=== PATIENT | female | born 1950 | race Caucasian/White ===

== ENCOUNTER → 2016-05-17 13:24 | Outpatient (CLI) | payer MEDICARE, BC ==
[2015-09-23 07:39] VITALS: BMI 36.1
[~2016-05-17 13:24] MED LIST: BAYER CHEWABLE81 MG PO; COMBIVENT RESPIM4 GM INH; IMDUR30 MG PO; MOBIC7.5 MG PO; NEURONTIN 300300 MG PO; NORCO 10/325 TA1 TA1 PO; PERCOCET 10/3251 TA1 PO; PERFOROMIS20 MCG/21 NEB; PLAVIX75 MG PO; PRAVACHOL40 MG PO; PRILOSEC20 MG PO; PRINIVIL10 MG PO; PROTONIX40 MG PO; SPIRIVA18 MCG INH; SYMBICORT 16010.2 GM INH; TENORMIN25 MG PO
[2016-05-23 03:08] LABS: OVA + PARASITE EXAM Final report (())
== END | disposition home or self-care (01) ==
LOC: D.LAB 11:00 → D.LABREF 13:24 → D.LAB 05-18 11:00
PROVIDERS: Internal Medicine Gastroenterology
DX: R10.9 Unspecified abdominal pain (principal)

== ENCOUNTER → 2016-05-18 09:44 | Outpatient (CLI) | payer MEDICARE, BC ==
[2015-09-23 07:39] VITALS: BMI 36.1
== END | disposition home or self-care (01) ==
LOC: D.CT 09:44
DX: R10.9 Unspecified abdominal pain (principal); R19.7 Diarrhea, unspecified; R63.4 Abnormal weight loss

== ENCOUNTER 2016-06-21 11:35 | Day surgery (SDC) | payer MEDICARE, BC ==
[~2016-06-21] VITALS: Ht 162.6 cm; Wt 94.5 kg
[~2016-06-21 11:35] MED LIST changes: -MOBIC7.5 MG PO; -PROTONIX40 MG PO; -SYMBICORT 16010.2 GM INH
[2016-06-21] MEDS ORDERED: MOBIC7.5 MG PO (13:30)
[2016-06-21 13:33] LABS: BASOPHILS 0.2 % (0.0-2.0); EOSINOPHILS 0.5 % (0-7); HEMATOCRIT 46.8 % (36.0-48.0); HEMOGLOBIN 15.9 g/dL (12-16); IMMATURE GRANULOCYTES 0.2 % (0-5); LYMPHOCYTES 24.7 % (15-50); MCH 33.3 pg (26.0-34.0); MCV 97.9 fL (80.0-100.0); MEAN PLATELET VOLUME 11.5 fL (7.4-10.4); MONOCYTES 8.1 % (2-11); NEUTROPHILS 66.3 % (40-80); PLATELET COUNT 219 10x3/uL (130-400); RBC 4.78 10x6/uL (4.00-5.40); WBC 9.3 10x3/uL (4.8-10.8)
[2016-06-21 13:35] VITALS: Ht 162.6 cm; Wt 94.5 kg
[2016-06-21 14:12] LABS: CALC OSMOLALITY 280 mosm/kg (275-300); CALCIUM 9.2 mg/dL (8.5-10.1); CHLORIDE - SERUM 104 mmol/L (98-107); CREATININE - SERUM 0.8 mg/dL (0.6-1.3); GLUCOSE 104 mg/dL (74-106); POTASSIUM - SERUM 4.9 mmol/L (3.5-5.1); SODIUM 141 mmol/L (136-145); UREA NITROGEN 13 mg/dL (7-18); eGFR NON AFRICAN AMERICAN 75 mL/min (90-120)
--- NOTE | 2016-06-21 14:40 | NUR ---
BALLOON DILATION 18 TO 20.
--- NOTE | 2016-06-21 16:25 | NUR ---
1545-IV D/C'D, PT TOLERATED. CATHETER INTACT 1605- DISCHARGE INSTRUCTIONS COMPLETED, PT VERBALIZED UNDERSTANDING. PAPERWORK SIGNED. 1610- PT DISCHARGED VIA WHEELCHAIR WITH FRIEND
--- NOTE | 2016-06-26 10:50 | OP ---
PATIENT NAME: RIZWAN DO MEDICAL RECORD: [id number] :48 LOCATION:D.OPS ADMISSION DATE: SURGEON: SRAVANI KEY DO DATE OF OPERATION: 06/21/2016 PROCEDURES: EGD with biopsies and balloon dilation. SCOPE: Olympus video gastroscope. MEDICATIONS: Propofol IV per anesthesia. INDICATIONS FOR PROCEDURE: Dysphagia, abnormal weight loss, abdominal pain. FINDINGS: Informed consent was given. The patient was made comfortable with propofol by slow IV push. Once adequate level of sedation was reached, the patient was placed on her left side. The endoscope was then advanced under direct visualization through the mouth to the second portion of the duodenum. The upper, middle and distal third of the esophagus appeared normal. 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 Just superior to this, there was a very mild Schatzki ring, which was dilated up to 20 mm in diameter successfully. The scope was advanced into the stomach and retroflexed to view the cardia where a small sliding hiatal hernia was visualized. The fundus, body of the stomach, antrum and prepyloric region appeared normal. Random biopsies were taken to rule out H. pylori and sent for histology. Scope was advanced in the small bowel where the bulb and the second portion of the duodenum appeared normal. The scope was then withdrawn from the patient. The patient tolerated the procedure well and there were no complications. ESTIMATED BLOOD LOSS: Less than 5 cc. IMPRESSION: 1. Mild Schatzki ring of the distal esophagus dilated up to 20 mm in diameter. 2. Borden esophagus, short segment, biopsied. 3. Small sliding hiatal hernia. PLAN AND RECOMMENDATIONS: 1. Discharge home when recovery parameters are met. 2. Continue gastroesophageal reflux diet and reflux precautions. 3. Change medications to Protonix 40 mg daily. 4. Proceed with colonoscopy as scheduled. 5. Follow up biopsy specimens. 6. Repeat EGD as needed for dysphagia. TRANSINT:[id number] Voice Confirmation ID: [id number] DOCUMENT ID: [id number] SRAVANI KEY DO at 1050 CC: [id number] DICTATION DATE: 06/21/16 1453 WIRELESS CONSTRUCTION MANAGER: 06/21/16 1846 [facility] 06/21/16 [facility] [address] [place] [address]
== END 2016-06-21 16:10 | disposition home or self-care (01) ==
LOC: D.OPS 11:35
PROVIDERS: Anesthesiology
DX: R10.30 Lower abdominal pain, unspecified (principal); R63.4 Abnormal weight loss; R19.7 Diarrhea, unspecified; K22.70 Barrett's esophagus without dysplasia; F17.200 Nicotine dependence, unspecified, uncomplicated; I25.10 Atherosclerotic heart disease of native coronary artery without angina pectoris; I10 Essential (primary) hypertension; J44.9 Chronic obstructive pulmonary disease, unspecified; K21.9 Gastro-esophageal reflux disease without esophagitis; Z95.5 Presence of coronary angioplasty implant and graft

== ENCOUNTER 2016-06-25 06:49 | Day surgery (SDC) | payer MEDICARE, BC ==
[~2016-06-25] VITALS: Ht 162.6 cm; Wt 94.5 kg
[~2016-06-25 06:49] MED LIST changes: +MOBIC7.5 MG PO
[2016-06-25] MEDS ORDERED: PROTONIX40 MG PO (07:29)
[2016-06-25] MEDS ORDERED: SYMBICORT 16010.2 GM INH (07:29)
[2016-06-25 07:37] VITALS: BP 144/86; Ht 162.6 cm; Wt 94.5 kg
[2016-06-25 08:22] LABS: ANION GAP 20.3 mmol/L (8-16); CALCIUM 9.1 mg/dL (8.5-10.1); POTASSIUM - SERUM 4.3 mmol/L (3.5-5.1)
[2016-06-25 08:28] LABS: BASOPHILS 0.5 % (0.0-2.0); EOSINOPHILS 1.5 % (0-7); HEMATOCRIT 47.4 % (36.0-48.0); HEMOGLOBIN 16.3 g/dL (12-16); IMMATURE GRANULOCYTES 0.2 % (0-5); MCH 33.3 pg (26.0-34.0); MCHC 34.4 g/dL (31.0-37.0); MCV 96.9 fL (80.0-100.0); MEAN PLATELET VOLUME 11.9 fL (7.4-10.4); MONOCYTES 8.6 % (2-11); NEUTROPHILS 65.2 % (40-80); PLATELET COUNT 258 10x3/uL (130-400); RBC 4.89 10x6/uL (4.00-5.40); RDW 12.7 % (11.5-14.5); WBC 8.6 10x3/uL (4.8-10.8)
--- NOTE | 2016-06-25 08:53 | NUR ---
0840-RECEIVED PT FROM GI LAB AWAKE AND ALERT. PASSING GAS. DENIES ANY N/V COLA GIVEN REQUEST. DR KEY IN ROOM SPEAKING WITH PATIENT. FULL LIQUID TRAY GIVEN. WILL CONTINUE TO MONITOR
--- NOTE | 2016-06-25 08:58 | NUR ---
0855-REPORT TO QUINN CLEARY RN
--- NOTE | 2016-06-25 09:35 | NUR ---
RX FOR BENTYL 10 MG ONE OR TWO PO BID PRN LOOSE STOOLS OR ABDOMINAL PAIN #[address] KEY CALLED TO [facility] WHICH PATIENT STATES IS PHARMACY OF CHOICE
--- NOTE | 2016-06-25 09:42 | NUR ---
DISCHARGE INSTRUCTIONS REVIEWED WITH PATIENT, DISCHARGED HOME VIA WHEELCHAIR TO PRIVATE VEHICLE
--- NOTE | 2016-06-26 10:50 | OP ---
PATIENT NAME: RIZWAN DO MEDICAL RECORD: [id number] :48 LOCATION:D.OPS ADMISSION DATE: SURGEON: SRAVANI KEY DO DATE OF OPERATION: 06/25/2016 PROCEDURE: Colonoscopy with biopsies and polypectomy. MEDICATIONS: Propofol 600 mg IV per anesthesia. SCOPE: [employer] video pediatric colonoscope. FINDINGS: Informed consent was given. The patient was made comfortable with the above medication. After reaching an adequate level of sedation by slow IV push, the patient was placed on her left side. A digital rectal examination was performed and ____ normal. The endoscope was then advanced under direct visualization through the rectum and advanced to the terminal ileum without difficulty. The scope was then slowly withdrawn and mucosa was carefully examined. In the cecum, just near the appendiceal orifice, there was a small sessile, but an appearing polyp measuring approximately 3 mm, which was removed with cold forceps. The polyp was completely removed and retrieved. Scope was withdrawn slightly to the ileocecal valve where there did appear to be lipomatous changes consistent with that valve. Multiple biopsies were taken in a tunnel fashion to confirm that this was a lipoma. Of note, this has been documented on a previous examination 3 years ago and does not appear to be changed or enlarged. Biopsies at that time showed only superficial mucosa. There was another polyp in the transverse colon, which was benign appearing and sessile. It measured approximately 6 mm in diameter. It was removed using hot forceps. It was completely removed and retrieved. There was evidence of mild diverticulosis in the transverse, descending, and sigmoid colon. The scope was further withdrawn to the rectum and retroflexed. The rectal wall appeared normal upon retroflexion. Scope was then withdrawn from the patient. Prior to withdrawal, there were random biopsies taken on the right side of the colon to rule out microscopic colitis. There was also stool collected to send for further stool studies regarding the patient's loose stools. The patient tolerated the procedure well and there were no complications. The withdrawal time was 21 minutes. IMPRESSION: 1. Two benign appearing polyps were located in the cecum and transverse colon. Both were removed with different maneuvers. 2. Left side diverticulosis of mild severity. 3. Clinical loose stools. PLAN AND RECOMMENDATIONS: 1. Discharge home when recovery parameters are met. 2. Continue current diet. 3. Continue current medications. 4. Follow up on biopsy specimens. 5. If biopsies are normal, consider dicyclomine versus another agent to either bulk stools or slow bowels down. 6. Recall recommendations will be dependent on biopsy results. TRANSINT:[id number] Voice Confirmation ID: [id number] DOCUMENT ID: [id number] OPERATIVE REPORT [id number] RIZWAN DO NATHAN A DO at 1050 CC: [id number] DICTATION DATE: 06/25/16834 QUILL WINDER: 06/25/16 1023 [facility] 06/25/16 [facility] [address] [place] [address]
[2016-06-27 03:11] LABS: OVA + PARASITE EXAM Final report (())
== END 2016-06-25 09:42 | disposition home or self-care (01) ==
LOC: D.OPS 06:49
PROVIDERS: Anesthesiology; Internal Medicine Gastroenterology
DX: D12.3 Benign neoplasm of transverse colon (principal); D12.0 Benign neoplasm of cecum; K57.90 Diverticulosis of intestine, part unspecified, without perforation or abscess without bleeding; F17.200 Nicotine dependence, unspecified, uncomplicated; I25.10 Atherosclerotic heart disease of native coronary artery without angina pectoris; I10 Essential (primary) hypertension; K21.9 Gastro-esophageal reflux disease without esophagitis; J44.9 Chronic obstructive pulmonary disease, unspecified; Z95.5 Presence of coronary angioplasty implant and graft

== ENCOUNTER 2016-08-01 12:00 | Emergency (ER) | payer MEDICARE, BC ==
[2016-06-25 07:37] VITALS: BMI 35.8
[~2016-08-01 12:00] MED LIST changes: +PROTONIX40 MG PO; +SYMBICORT 16010.2 GM INH
[2016-08-01 12:50] LABS: BASOPHILS 0.4 % (0-2); EOSINOPHILS 0.3 % (0-7); HEMATOCRIT 46.4 % (36.0-48.0); HEMOGLOBIN 15.7 g/dL (12-16); IMMATURE GRANULOCYTES 0.1 % (0-5); LYMPHOCYTES 4.6 % (15-50); MCH 33.1 pg (26.0-34.0); MCHC 33.8 g/dL (31.0-37.0); MCV 97.7 fL (80.0-100.0); MEAN PLATELET VOLUME 11.3 fL (7.4-10.4); MONOCYTES 8.4 % (2-11); NEUTROPHILS 86.2 % (40-80); RBC 4.75 10x6/uL (4.00-5.40); WBC 7.6 10x3/uL (4.8-10.8)
[2016-08-01 13:04] LABS: PLATELET COUNT 182 10x3/uL (130-400)
[2016-08-01 13:12] LABS: ALBUMIN 3.4 g/dL (3.4-5.0); ALKALINE PHOSPHATASE 124 U/L (46-116); ALT (SGPT) 27 U/L (10-68); BILIRUBIN - TOTAL 0.36 mg/dL (0.2-1.3); CALC OSMOLALITY 275 mosm/kg (275-300); CALCIUM 9.1 mg/dL (8.5-10.1); CARBON DIOXIDE 24.1 mmol/L (21.0-32.0); CHLORIDE - SERUM 103 mmol/L (98-107); CREATININE - SERUM 1.1 mg/dL (0.6-1.3); GLUCOSE 131 mg/dL (74-106); POTASSIUM - SERUM 4.3 mmol/L (3.5-5.1); PROTEIN - SERUM 7.4 g/dL (6.4-8.2); SODIUM 137 mmol/L (136-145); UREA NITROGEN 13 mg/dL (7-18); eGFR NON AFRICAN AMERICAN 52 mL/min (90-120)
[2016-08-01 13:24] LABS: CHOL - HDL RATIO 4.4 ratio (2.3-4.1); CHOLESTEROL, TOTAL 226 mg/dL (0-200); CKMB 0.2 U/L (0.0-3.6); CREATINE KINASE 60 UL (21-215); HDL CHOLESTEROL 52 mg/dL (32-96)
[2016-08-01 13:55] LABS: LDL CHOLESTEROL 144 mg/dL (0-100); LDL-HDL RATIO 2.8 ratio (1.5-3.5)
[2016-08-01 13:56] LABS: TRIGLYCERIDE 154 mg/dL (30-200); TROPONIN-I < 0.017 ng/mL (0.000-0.060)
== END 2016-08-01 18:44 | disposition home or self-care (01) ==
LOC: D.ER 12:00
PROVIDERS: Emergency Medicine
DX: R07.9 Chest pain, unspecified (principal); I10 Essential (primary) hypertension; J44.9 Chronic obstructive pulmonary disease, unspecified; K21.9 Gastro-esophageal reflux disease without esophagitis; Q05.9 Spina bifida, unspecified

== ENCOUNTER 2016-08-10 13:13 | Inpatient (IN) | payer MEDICARE, BC ==
[~2016-08-10] VITALS: Ht 162.6 cm; Wt 97.3 kg
--- NOTE | ~2016-08-10 | EC ---
PATIENT:RIZWAN DO DATE OF SERVICE: 08/11/16 SEX: F MEDICAL RECORD: [id number] DATE OF : 46 LOCATION:D. D.212 AGE OF PATIENT: 66 ADMISSION DATE: 08/11/16 REFERRING PHYSICIAN: INTERPRETING PHYSICIAN: MARTHA JAUREGUI M.D. ECHOCARDIOGRAM REPORT ECHO CHARGES 4 ECHO COMPLETE CLINICAL DIAGNOSIS: NEAR SYNCOPE HX HTN /SYNCOPE/COPD ECHOCARDIOGRAPHIC MEASUREMENTS (adult normal given) AC root (d.<3.7cm) 3.9 LV Septum d (<1.2 cm> 1.8 Valve Excursion 2.1 LV Septum (systole) 2.0 Left Atria (s.<4.0cm> 3.5 LVPW d(<1.2cm) 1.2 RV (d.<2.3cm) 3.6 LVPW (sytole) 1.6 LV diastole(<5.6CM) 5.0 MV E-F(>70mm/sec) LV systole 3.4 LVOT Diameter 1.8 MV exc.(>10mm) 1.4 Est.ejection fraction (50-75%) Pericardial Effusion N DOPPLER: LVIT A 113 E 84.0 LA RVSP 24 LVOT 110 AOP1/2T Asc. 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 Jauregui TAPE# PACS DATE OF SERVICE: 08/11/2016 INDICATION: Syncope. DESCRIPTION: Left ventricle demonstrates left ventricular hypertrophy. No regional wall motion abnormalities are noted. Estimated ejection fraction is 55%. Mitral valve is structurally normal. There is no regurgitation or prolapse seen. Left atrium is normal in size. The aortic valve is trileaflet. There is no stenosis or regurgitation seen. Right ventricle is mildly dilated. Tricuspid valve is structurally normal. There is mild regurgitation noted. ECHOCARDIOGRAM REPORT [id number] RIZWAN DO Right atrium is normal in size. There is no pericardial effusion seen. IMPRESSION: 1. Left ventricular hypertrophy with preserved ejection fraction of 55%. 2. Mild tricuspid regurgitation. TRANSINT:[id number] Voice Confirmation ID: [id number] DOCUMENT ID: [id number] MARTHA JAUREGUI M.D. CC: [id number] DICTATION DATE: 08/12/1655 [employer] PROFESSOR: 08/12/16911 ADM IN [facility] [address] [place] [id number]
[2016-08-10 14:15] LABS: BASOPHILS 0.3 % (0-2); EOSINOPHILS 0.4 % (0-7); HEMATOCRIT 47.6 % (36.0-48.0); HEMOGLOBIN 16.6 g/dL (12-16); IMMATURE GRANULOCYTES 0.3 % (0-5); LYMPHOCYTES 26.1 % (15-50); MCH 33.2 pg (26.0-34.0); MCHC 34.9 g/dL (31.0-37.0); MCV 95.2 fL (80.0-100.0); MEAN PLATELET VOLUME 12.4 fL (7.4-10.4); MONOCYTES 10.1 % (2-11); NEUTROPHILS 62.8 % (40-80); PLATELET COUNT 183 10x3/uL (130-400); RDW 12.9 % (11.5-14.5); WBC 9.7 10x3/uL (4.8-10.8)
[2016-08-10 14:38] LABS: ALBUMIN 3.4 g/dL (3.4-5.0); ALKALINE PHOSPHATASE 105 U/L (46-116); ALT (SGPT) 36 U/L (10-68); BILIRUBIN - TOTAL 0.61 mg/dL (0.2-1.3); CALC OSMOLALITY 281 mosm/kg (275-300); CALCIUM 9.1 mg/dL (8.5-10.1); CARBON DIOXIDE 24.1 mmol/L (21.0-32.0); CHLORIDE - SERUM 102 mmol/L (98-107); GLUCOSE 115 mg/dL (74-106); POTASSIUM - SERUM 3.3 mmol/L (3.5-5.1); PROTEIN - SERUM 7.5 g/dL (6.4-8.2); SODIUM 139 mmol/L (136-145); UREA NITROGEN 20 mg/dL (7-18); eGFR NON AFRICAN AMERICAN 58 mL/min (90-120)
[2016-08-10 14:45] LABS: PRO BNP 184 pg/mL (0-125); TROPONIN-I < 0.017 ng/mL (0.000-0.060)
[2016-08-10 18:23] LABS: APPEARANCE HAZY (CLEAR); BILIRUBIN NEGATIVE (NEGATIVE); COLOR DK YELLOW (YELLOW); GLUCOSE NEGATIVE (NEGATIVE); KETONE SMALL mg/dL (NEGATIVE); LEUKOCYTE ESTERASE TRACE (NEGATIVE); NITRITE NEGATIVE (NEGATIVE); PROTEIN TRACE mg/dL (NEGATIVE); SPECIFIC GRAVITY 1.015 (1.005-1.020); UROBILINOGEN NORMAL (NORMAL)
[2016-08-10 18:24] LABS: BACTERIA MANY /hpf (NONE SEEN); EPITHELIAL CELLS 0-5 /hpf (0-5); RED CELLS - URINE NONE SEEN /hpf (0-5); WHITE CELLS - URINE 0-5 /hpf (0-5)
--- NOTE | 2016-08-10 20:11 | NUR ---
PT ARRIVED TO UNIT AT 1915 FROM ER VIA WHEELCHAIR. ALERT/ORIENTED. FADING BRUISES TO LEFT EYE. ADMISSION ASSESSMENT COMPLETED, HOME MEDS AND LAST DOSE REVIEWED. UPDATE HISTORY. STARTED IVF NS @ 75ML/HR TO RIGHT A/C PIV. INITIATE PLAN OF CARE.
--- NOTE | 2016-08-10 20:49 | NUR ---
PAGE/RETURN CALL FROM DR SAENZ. REPORTED PT WITH HEADACHE AND NO AVAILABLE PAIN MED. ORDERS RECIEVED.
[2016-08-10 20:56] VITALS: BP 99/80
--- NOTE | 2016-08-10 21:02 | NUR ---
MEDICATED WITH NORCO FOR HEADACHE AND PROVIDED SHERBERT SO THE NORCO DOES NOT MAKE HER NAUSEATED.
[2016-08-10 22:15] VITALS: BP 99/80
[2016-08-11 00:42] VITALS: BP 96/72
--- NOTE | 2016-08-11 01:27 | NUR ---
PT RESTING IN BED WITH NO DISTRESS. IVF NS @ 75 INFUSING TO LEF A/C. NONLABORED RESPIRATIONS ON O2 @ 2L/NC. FALL PRECAUTIONS/SCDS IN PLACE. NO NEEDS AT THIS TIME. CPOC.
--- NOTE | 2016-08-11 02:02 | NUR ---
ASSISTED UP TO GO TO VOID. AMBULATES WITH SBA FROM STAFF. BACK TO BED. CALL LIGHT IN REACH.
[2016-08-11] MEDS ORDERED: ZOFRAN ODT4 MG/UDTAB PO (05:08)
--- NOTE | 2016-08-11 07:24 | NUR ---
0720-AM ROUNDING DONE WITH PATIENT LAYING ON RIGHT SIDE, AROUSES EASILY. ABOVE LEFT BRUSIED EYE, SUTUERS ARE SEEN. ON HEART MONITOR SHOWING SB, HR 55. INSTRUCTED TO CALL FOR ASSIST AND USE CALL LIGHT, STATES TO UNDERSTANDING. WILL CPOC.
[2016-08-11 08:00] VITALS: BP 114/61
--- NOTE | 2016-08-11 11:02 | NUR ---
PATIENT IS WANTING TYLENOL, NOT NORCO. CALL PLACED TO DR SAENZ. AWAITING CALL BACK.
[2016-08-11 11:44] VITALS: Ht 162.6 cm; Wt 97.3 kg
[2016-08-11 12:00] VITALS: BP 101/44
[2016-08-11 16:24] VITALS: BP 105/60
--- NOTE | 2016-08-11 17:27 | NUR ---
ASSISTED TO RESTROOM, VOIDS EASILY. ASSISTED BACK TO BED, BED ALARM IS SET. CALL LIGHT IN USE.
--- NOTE | 2016-08-11 19:00 | NUR ---
RECEIVED REPORT AND ASSUMED PT CARE FROM DAY SHIFT NURSE @ THIS TIME.
[2016-08-11 20:00] VITALS: BP 128/57
--- NOTE | 2016-08-11 20:20 | NUR ---
ASSISTED TO BR, ASSESSMENT COMPLETED AND ESSENTIALLY UNCHANGED. VSS, AFEBRILE. BED ALARM SET FOR SAFETY. REMAINS ON TELEMETRY WITH HR 60'S. NO NEEDS VOICED. WILL CONT TO MONITOR.
--- NOTE | 2016-08-11 23:39 | NUR ---
PT RESTING WELL WITHOUT C/O OR DISTRESS NOTED. CALL LIGHT WITHIN REACH.
[2016-08-12 04:00] VITALS: BP 136/52
--- NOTE | 2016-08-12 04:30 | NUR ---
PATIENT ACCIDENTLY PULLS OUT IV. CATH FOUND TO BE INTACT. PT CLEANED UP, REQUESTED THAT WE HOLD OFF ON STARTING HER IV UNTIL HER PHYSICIAN ROUNDS THIS AM. PT STATES SHE IS TO BE DISCHARGED LATER THIS MORNING. COMPLIED WITH PT'S WISHES.
[2016-08-12 06:10] LABS: BASOPHILS 0.4 % (0-2); EOSINOPHILS 1.3 % (0-7); HEMATOCRIT 39.7 % (36.0-48.0); HEMOGLOBIN 13.5 g/dL (12-16); IMMATURE GRANULOCYTES 0.4 % (0-5); LYMPHOCYTES 28.2 % (15-50); MCH 32.7 pg (26.0-34.0); MCV 96.1 fL (80.0-100.0); MEAN PLATELET VOLUME 12.6 fL (7.4-10.4); MONOCYTES 12.6 % (2-11); NEUTROPHILS 57.1 % (40-80); PLATELET COUNT 180 10x3/uL (130-400); RBC 4.13 10x6/uL (4.00-5.40); RDW 12.9 % (11.5-14.5)
[2016-08-12 06:11] LABS: WBC 6.8 10x3/uL (4.8-10.8)
[2016-08-12 06:36] LABS: CALCIUM 8.1 mg/dL (8.5-10.1); CARBON DIOXIDE 25.1 mmol/L (21.0-32.0); CHLORIDE - SERUM 109 mmol/L (98-107); GLUCOSE 95 mg/dL (74-106); POTASSIUM - SERUM 3.2 mmol/L (3.5-5.1); SODIUM 143 mmol/L (136-145)
[2016-08-12 06:37] LABS: CALC OSMOLALITY 283 mosm/kg (275-300); CREATININE - SERUM 0.6 mg/dL (0.6-1.3); UREA NITROGEN 9 mg/dL (7-18); eGFR NON AFRICAN AMERICAN > 90 mL/min (90-120)
--- NOTE | 2016-08-12 07:30 | NUR ---
RESTIJG QUIETLY RESP UNLABORED NAD NOTED
--- NOTE | 2016-08-12 08:42 | NUR ---
ASSESSMENT COMPLETED. ALERT ORIENTED. REFUSES TO HAVE IV RESTARTED. LEFT EYE IS BLACK WITH LACERATION ABOVE THE EYE WITH SUTURES. TELEMERTY SHOWS SR. DENIES ANY NEEDS. SR UP WITH CALL LIGHT IN REACH
[2016-08-12 08:46] VITALS: BP 139/86
--- NOTE | 2016-08-12 10:09 | NUR ---
PT DISCHARGED. INSTRUCTIONS GIVEN. TO PRIVATE CAR PER WHEELCHAIR
== END 2016-08-12 10:10 | disposition home or self-care (01) | DRG 312 ==
LOC: D.ER 13:13 → D.M2 17:23 → OBSVTIME 19:15 → D.M2 08-11 18:54
PROVIDERS: Emergency Medicine; Family Medicine; ADMIT Internal Medicine Cardiovascular Disease
DX: I95.1 Orthostatic hypotension (principal); I10 Essential (primary) hypertension; I25.10 Atherosclerotic heart disease of native coronary artery without angina pectoris; J44.9 Chronic obstructive pulmonary disease, unspecified; I73.9 Peripheral vascular disease, unspecified; Z95.5 Presence of coronary angioplasty implant and graft; Z72.0 Tobacco use

== ENCOUNTER 2017-02-27 19:48 | Observation (INO) | payer MEDICARE, BC ==
[~2017-02-27] VITALS: Ht 162.6 cm; Wt 87.5 kg
--- NOTE | ~2017-02-27 | HEMODYNAMI ---
PATIENT:RIZWAN DO MEDICAL RECORD: [id number] : 46 LOCATION:[facility] D.2117 ADMISSION DATE: 02/27/17 Generatedon:02/28/201715:23 Patient name: RIZWAN DO Patient #: [id number] SSN: DO B: 1950 Date of study: 02/28/2017 Page: Of Hemodynamic Procedure Report Patient Data Patient Demographics Procedure consent was obtained First Name: RIZWAN Gender: Female Last Name: ERNESTINA : 1950 [facility] Initial: Amna Age: 66 year(s) Patient #: [id number] Race: Additional ID: [id number] Contact details [address]: [address] [place] [address] RD. State: [place] City: [place] Zip code: [address] Past Medical History Allergies Allergen Reaction Date Comments Reported Other allergy 02/28/2017 Pentazocine Lactate, Cephalexin, Adhesive Admission Admission Data Admission Date: 02/27/2017 Admission Time: 22:57 Room #: D.2117 Lab Results Lab Result Date: 02/28/2017 Lab Result Time: 0:00 Biochemistry Name Units Result Min Max BUN mg/dl 22 --(----)-* 7 18 Creatinine mg/dl 0.9 --(-*--)-- 0.6 1.3 CBC Name Units Result Min Max Hemoglobin g/dl 15.5 --(-*--)-- 13.5 17.5 Procedure Procedure Types Cath Procedure Diagnostic Procedure [facility] w/Coronaries PCI Procedure Coronary Stent Coronary Stent Initial PTCA PTCA Additional Miscellaneous Procedures Moderate Sedation up to 30 minutes Procedure Description Procedure Date Procedure Date: 02/28/2017 Procedure Start Time: 15:00 Procedure End Time: 15:22 Procedure Staff Name Function Reji Jerez MD Performing Physician Benny Medrano RN Nurse Molly Hahn RT Monitor Dena Elizondo RT Monitor Adonay Geiger RT Scrub Procedure Data Cath Procedure Fluoroscopy Diagnostic fluoroscopy Total fluoroscopy Time: 4.5 time: 4.5 min min Diagnostic fluoroscopy Total fluoroscopy dose: 744 dose: 744 mGy mGy Contrast Material Contrast Material Type Amount (ml) Isovue 300 127 Entry Location Entry Primary Successful Side Size Upsize Upsize Entry Closure Succes sful Closure Location (Fr) 1 (Fr) 2 (Fr) Remarks Device Remarks Femoral Right 5 Fr 6 Fr artery Short Estimated blood loss: 10 ml Diagnostic catheters Device Type Used For End Catheter Placement MULTIPACK JL 4.0 5Fr Procedure catheter MULTIPACK 3DRC 5Fr Procedure catheter MULTIPACK Pigtail 5 Fr Procedure catheter Procedure Complications No complications Procedure Medications Medication Administration Route Dosage 0.9% NaCl I.V. 100 ml/hr Oxygen NC 2 l/min Heparin Flush Bag added to field 2 bags (1000units/500ml NS) Lidocaine 2% added to field 20 Versed I.V. 2 mg Fentanyl I.V. 100 mcg Heparin Bolus I.V. 5000 units Integrilin (Bolus I.V. 7.9 ml 2mg/ml) Integrilin (Bolus wasted 2.1 ml 2mg/ml) Plavix P.O. 600 mg Hemodynamics Rest HGB: 15.5 (g/dl) Heart Rate: 51 (bpm) Pressure Samples Time Site Value (mmHg) Purpose Heart Use Rate(bpm) 15:06 LV 126/16,19 Snapshot 51 15:06 AO 135/73(97) Pullback 52 15:06 LV 132/18,22 Pullback 52 Gradients Valve Time Site 1 Site 2 Mean SEP/DFP Peak To Heart Use (mmHg) (sec/min) Peak Rate (mmHg) (bpm) Aortic 15:06 LV AO 0 52 132/18,22 135/73(97) Calculations Valve P-P Mean Valve Index Valve Source Name Gradient Area Flow (cm2) Aortic 0 0 Snapshots Pre Cath Intra NCS Post Cath Vital Signs Time Heart Resp SPO2 etCO2 NIBP (mmHg) Rhythm Pain Sedation Rate (ipm) (%) (mmHg) Status Level (bpm) 14:45:19 51 14 96 127/79(101) NSR 0 (11) 10(A) , No pain 14:50:46 52 16 99 149/84(125) NSR 0 (11) 10(A) , No pain 14:55:39 50 13 98 139/82(110) NSR 0 (11) 10(A) , No pain 15:00:30 51 15 95 12.7 131/78(108) NSR 0 (11) 10(A) , No pain 15:05:21 52 14 95 14.1 124/67(97) NSR 0 (11) 10(A) , No pain 15:10:08 51 15 92 14.9 124/72(107) NSR 0 (11) 10(A) , No pain 15:15:07 57 14 97 14.9 Measuring NSR 0 (11) 10(A) , No pain 15:15:31 57 22 97 13.4 134/76(102) NSR 0 (11) 10(A) , No pain 15:20:14 51 10 96 15.6 126/79(105) NSR 0 (11) 10(A) , No pain Medications Time Medication Route Dose Verified Delivered Reason Notes Effectiveness by by 14:53:27 0.9% NaCl I.V. 100 Benny Benny Per physician ml/hr Mitchell Medrano RN RN 14:53:39 Oxygen NC 2 Benny Benny Per physician l/min Mitchell Medrano RN RN 14:53:51 Heparin Flush added 2 Benny Benny used for Bag to bags Mitchell Medrano procedure (1000units/500ml field LOPES RN NS) 14:54:03 Lidocaine 2% added 20ml Benny Benny for local to vial Mitchell Medrano anesthetic field LOPES RN 15:02:13 Versed I.V. 2 mg Benny Benny for sedation Mitchell Medrano RN RN 15:02:24 Fentanyl I.V. 100 Benny Benny for sedation mcg Mitchell Medrano RN RN 15:11:58 Heparin Bolus I.V. 5000 Benny Benny for units Mitchell Medrano anticoagulation MOSES RN 15:12:18 Integrilin I.V. 7.9 Benny Benny for (Bolus 2mg/ml) ml Mitchell Medrano antiplatelet RN RN therapy 15:12:31 Integrilin wasted 2.1 Benny Benny to sharp's (Bolus 2mg/ml) ml Mitchell Medrano RN RN 15:19:27 Plavix P.O. 600 Benny Benny for mg Mitchell Medrano antiplatelet RN RN therapy Procedure Log Time Note 14:15:33 Adonay OREILLY(R) sent for patient. Start room use. 14:40:34 Time tracking: Regular hours 14:40:43 Plan of Care:Hemodynamics will remain stable., Cardiac rhythm will remain stable., Comfort level will be maintained., Respiratory function will remain adequate., Patient/ family verbilizes understanding of procedure., Procedure tolerated without complication., Recovers from procedure without complications.. 14:41:34 Patient received from PCU to CCL 1 Alert and oriented. Tansferred to table in Supine position. 14:41:36 Warm blankets applied, and chucky hugger turned on for patient comfort. 14:41:37 Correct patient and procedure confirmed by team. 14:41:40 Signed procedure consent form obtained from patient. 14:41:41 ECG and BP/O2 sat monitors applied to patient. 14:44:22 Vital chart was started 14:44:28 Baseline sample Acquired. 14:53:24 Rhythm: sinus bradycardia 14:53:27 0.9% NaCl 100 ml/hr I.V. was administered by Benny Medrano RN; Per physician; 14:53:27 Baseline sample Acquired. 14:53:29 Full Disclosure recording started 14:53:39 Oxygen 2 l/min NC was administered by Benny Medrano RN; Per physician; 14:53:40 H&P Date Dictated: 02/28/2017 Within 30 days and on chart.. 14:53:42 Pre-op teaching completed and patient verbalized understanding. 14:53:45 Family in patients room. 14:53:46 Patient NPO since Midnight. 14:53:51 Heparin Flush Bag (1000units/500ml NS) 2 bags added to field was administered by Bneny Medrano RN; used for procedure; 14:54:03 Lidocaine 2% 20ml vial added to field was administered by Benny Medrano RN; for local anesthetic; 14:54:25 Patient allergic to Other allergyPentazocine Lactate, Cephalexin, Adhesive 14:54:27 Is the patient allergic to Iodine/contrast media? No. 14:54:34 Is patient on blood thinner?No 14:54:39 Patient diabetic? No. 14:54:41 Patient not . Patient is over age 55. 14:54:53 Previous problem with sedation/anesthesia? No ? 14:54:55 Snore? No 14:54:56 Sleep apnea? No 14:54:58 Deviated septum? No 14:54:58 Opens mouth fully? Yes 14:54:59 Sticks out tongue? Yes 14:55:03 Airway obstruction? Yes COPD 14:55:06 Dentures? No ? 14:55:09 Pre procedure: right dorsailis pedis pulse 2+ Normal; easily identifiable; not easily obliterated 14:55:12 Patient pain scale 0/10 ?. 14:55:35 IV patent on arrival in right hand with 0.9% NaCl at [facility]. 14:56:06 Lab Result : BUN 22 mg/dl 14:56:06 Lab Result : Creatinine 0.9 mg/dl 14:56:06 Lab Result : Hemoglobin 15.5 g/dl 14:56:09 Lab results completed and on chart. 14:56:12 Right groin area was prepped with chlora-prep and draped in sterile fashion 14:56:14 Sharps counted by scrub and verified by R.N. 14:56:15 Alarms reviewed by R. N. 14:56:17 --------ALL STOP TIME OUT------ 14:56:17 Final Timeout: patient, procedure, and site verified with staff and physician. All members of the team are in agreement. 14:56:19 Right groin site verified by team. 14:56:23 Physical assessment completed. ASA score P 2 - A patient with mild systemic disease as per Reji Jerez MD. 14:56:27 Sedation plan: IV Moderate Sedation Medication:Versed, Fentanyl 14:58:28 Use device set Femoral Dx 14:58:29 ACIST Syringe (57656) opened to sterile field. 14:58:29 Bag Decanter () opened to sterile field. 14:58:31 ACIST Hand Control (49178) opened to sterile field. 14:58:31 ACIST Manifold (14174) opened to sterile field. 14:58:32 Tegaderm 4 x 4 (1626W) opened to sterile field. 14:58:34 Medline Cath Pack ([id number]) opened to sterile field. 14:58:34 SHEATH 5FR Southview (SQC013) opened to sterile field. 14:58:35 DIAGNOSTIC WIRE .035 260cm J wire (943451) opened to sterile field. 14:58:36 DIAGNOSTIC Multipack 5Fr catheter set (NP3835) opened to sterile field. 14:58:39 PERCUTANEOUS ENTRY 19GA needle opened to sterile field. 15:00:51 Procedure started. 15:00:56 Local anesthetic to right femoral artery with Lidocaine 2% by Reji Jerez MD.INITIAL ACCESS ONLY 15:01:57 A 5 Fr sheath was inserted into the Right Femoral artery 15:02:13 Versed 2 mg I.V. was administered by Benny Medrano RN; for sedation; 15:02:24 Fentanyl 100 mcg I.V. was administered by Benny Medrano RN; for sedation; 15:02:52 A MULTIPACK JL 4.0 5Fr catheter was advanced over the wire and used for Procedure. 15:03:31 LCA angiography performed. 15:03:57 Catheter removed. 15:04:06 A MULTIPACK 3DRC 5Fr catheter was advanced over the wire and used for Procedure. 15:05:00 RCA angiography performed. 15:05:09 Catheter removed. 15:05:16 A MULTIPACK Pigtail 5 Fr catheter was advanced over the wire and used for Procedure. 15:05:45 Injector settings: Ml/sec: 10, Volume: 20, 15:05:46 LV hemodynamics recorded. 15:05:48 LV gram done using MAC 15:06:56 EF : 55 % 15:06:57 Catheter removed. 15:07:[address] NG PCI 15:07:14 SHEATH 6FR [place]view (CTU872) opened to sterile field. 15:07:16 INFLATOR Merit BasixCompak (FF2628) opened to sterile field. 15:07:28 GUIDE 6FR EBU 3.5 catheter ([id number]) opened to sterile field. 15:07:43 Sheath upsized to a 6 Fr Short. 15:07:53 WHISPER 300cm guide wire ([id number]) opened to sterile field. 15:08:18 6 Fr EBU 3.5 guide catheter was inserted over the wire 15:08:21 WHISPER wire advanced. 15:11:57 Wire advanced across lesion. 15:11:58 Heparin Bolus 5000 units I.V. was administered by Benny Medrano RN; for anticoagulation; 15:12:18 Integrilin (Bolus 2mg/ml) 7.9 ml I.V. was administered by Benny Medrano RN; for antiplatelet therapy; 15:12:31 Integrilin (Bolus 2mg/ml) 2.1 ml wasted was administered by Benny Medrano RN; to sharp's; 15:14:47 Inflation Number: 1 A ROLDAN RX 3.0 x 15 stent ([id number]) was prepped and advanced across the Prox LAD. The stent was deployed at 14 EFRAÍN for 0:10 (min:sec). 15:16:08 Inflation number: 2 The stent balloon was then re-inflated across the Prox LAD to 8 EFRAÍN for 0:00 (min:sec). 15:16:29 Stent catheter was removed intact over wire. 15:17:00 Wire redirected to DIAG. 15:17:41 Inflation number: 1 The stent balloon was then re-inflated across the 1st Diag to 4 EFRAÍN for 0:10 (min:sec). 15:17:54 Stent catheter was removed intact over wire. 15:17:55 Balloon removed over the wire. 15:17:56 Wire removed. 15:18:10 Guide catheter removed. 15:18:14 EXOSEAL 6Fr (EX600) opened to sterile field. 15:18:23 Procedure ended.(Physican Out) 15:18:55 Fluoroscopy time 04.50 minutes. 15:18:59 Fluoroscopy dose: 744 mGy 15:18:59 Flurop Dose total: 744 15:19:03 Contrast amount:Isovue 300 127ml. 15:19:04 Sharps counted by scrub and verified by R.N. 15:19:11 Insertion/operative site no bleeding no hematoma. 15:19:14 Post-op/insertion site Right Femoral artery dressed using a 4 x 4 and Tegaderm. 15:19:19 Post procedure: right dorsailis pedis pulse 2+ Normal; easily identifiable; not easily obliterated. 15:19:22 Post-procedure physical assessment completed. ASA score P 2 - A patient with mild systemic disease as per Reji Jerez MD. 15:19:26 Post procedure rhythm: unchanged. 15:19:27 Plavix 600 mg P.O. was administered by Benny Medrano RN; for antiplatelet therapy; 15:19:29 Estimated blood loss: 10 ml 15:19:30 Post procedure instruction explained to patient.Patient verbalizes understanding. 15:19:31 Patient needs reinforcement of post procedure teaching. 15:19:58 Procedure type changed to Cath procedure, Diagnostic procedure, LHC, LHC w/Coronaries, PCI procedure, Coronary Stent, Coronary Stent Initial, PTCA, PTCA Additional, Miscellaneous Procedures, Moderate Sedation up to 30 minutes 15:21:10 Procedure and supply charges have been captured, reviewed, submitted and are correct. 15:21:13 Procedure Complication : No complications 15:22:45 Vital chart was stopped 15:22:46 See physician's report for complete and final results. 15:22:49 Report given to PCU. 15:22:53 Patient transfered to PCU with Bed. 15:22:55 Procedure ended. 15:22:55 Full Disclosure recording stopped 15:23:02 End room use (Document Last) Intervention Summary Intervention Notes Time ActionType Lesion and Equipment Used Action# Pressure Duration Attributes 15:14:47 Place stent Prox LAD ROLDAN RX 3.0 x 1 14 00:10 15 stent ([id number]) 15:16:08 Reinflate Prox LAD ROLDAN RX 3.0 x 2 8 00:00 stent 15 stent balloon ([id number]) 15:17:41 Reinflate 1st Diag ROLDAN RX 3.0 x 1 4 00:10 stent 15 stent balloon ([id number]) Device Usage Item Name Manufacture Quantity Catalog [facility] Lot# / Number Charge Number Stock Stock Serial# Code ACIST Syringe Acist 1 28682 454424 842931 716431 20 (91513) Medical Systems Inc Bag Decanter Microtek 1 2001S 549851 59272 475914 5 (2001S) Medical Inc. ACIST Hand Acist 1 89388 235686 867954 336887 5 Control Medical (16796) Systems Inc ACIST Manifold Acist 1 22622 934652 113278 479648 5 (39551) Medical Systems Inc Tegaderm 4 x 4 3M 1 1626W 339226 457832 461051 5 (1626W) Medline Cath Cardinal 1 [id number] 674318 26309 625065 5 [facility] ([id number]) SHEATH 5FR Terumo 1 ESD967 349545 438122 032267 40 [place]view (EXK927) DIAGNOSTIC [facility] 1 577394 236789 997710 337918 30 WIRE .035 260cm J wire (905397) DIAGNOSTIC Cardinal 1 HJ7324 279404 04066 429959 30 Multipack 5Fr Health catheter set (YZ1818) PERCUTANEOUS Cook Medical 1 D67493 897920 678002 5 ENTRY 19GA needle MULTIPACK JL Cardinal 1 075258 5 4.0 5Fr Health catheter MULTIPACK 3DRC Cardinal 1 932367 5 5Fr catheter Health MULTIPACK Cardinal 1 800454 5 Pigtail 5 Fr Health catheter SHEATH 6FR Terumo 1 MKP153 315363 275803 890308 40 [place] (UBJ883) INFLATOR Merit Merit 1 YC6677 049283 396137 885891 15 [facility] (CH6027) GUIDE 6FR EBU Medtronic 1 [id number] 056898 46182 300228 3 3.5 catheter (CH6ZYF24) WHISPER 300cm [place]on 1 [id number] 390805 109281 913065 5 guide wire Vascular ([id number]) ROLDAN RX 3.0 x Medtronic 1 [id number] 740094 4206535 655218 5 [id number] 15 stent ([id number]) EXOSEAL 6Fr Cardinal 1 EX600 219345 571898 507581 10 (EX600) Health Signature Audit Christine Stage Time Signature Unsigned Intra-Procedure 02/28/2017 Molly Hahn 3:23:48 PM RT(R) Signatures Monitor : Molly Hahn Signature : RT Date : Time : Monitor : Dena Signature : Counts RT Date : Time : [address], [facility] [id number]
[~2017-02-27 19:48] MED LIST changes: +ZOFRAN ODT4 MG/UDTAB PO
[2017-02-27 20:49] LABS: BASOPHILS 0.1 % (0-2); EOSINOPHILS 0 % (0-7); HEMOGLOBIN 15.5 g/dL (12-16); IMMATURE GRANULOCYTES 0.4 % (0-5); LYMPHOCYTES 10.6 % (15-50); MCH 33.2 pg (26.0-34.0); MCHC 34.4 g/dL (31.0-37.0); MCV 96.4 fL (80.0-100.0); MEAN PLATELET VOLUME 10.7 fL (7.4-10.4); MONOCYTES 6.6 % (2-11); NEUTROPHILS 82.3 % (40-80); RBC 4.67 10x6/uL (4.00-5.40); RDW 12.9 % (11.5-14.5); WBC 16.1 10x3/uL (4.8-10.8)
[2017-02-27 21:01] LABS: PLATELET COUNT 282 10x3/uL (130-400)
[2017-02-27 21:04] LABS: ALBUMIN 3.3 g/dL (3.4-5.0); ALKALINE PHOSPHATASE 90 U/L (46-116); ALT (SGPT) 22 U/L (10-68); BILIRUBIN - TOTAL 0.24 mg/dL (0.2-1.3); CALC OSMOLALITY 279 mosm/kg (275-300); CALCIUM 10.4 mg/dL (8.5-10.1); CARBON DIOXIDE 26.8 mmol/L (21.0-32.0); CHLORIDE - SERUM 102 mmol/L (98-107); CREATININE - SERUM 0.9 mg/dL (0.6-1.3); GLUCOSE 122 mg/dL (74-106); POTASSIUM - SERUM 3.8 mmol/L (3.5-5.1); PROTEIN - SERUM 7.1 g/dL (6.4-8.2); SODIUM 138 mmol/L (136-145); UREA NITROGEN 22 mg/dL (7-18); eGFR NON AFRICAN AMERICAN 66 mL/min (90-120)
[2017-02-27 21:13] LABS: CHOL - HDL RATIO 4.2 ratio (2.3-4.1); CHOLESTEROL, TOTAL 250 mg/dL (0-200); CKMB 1.1 U/L (0.0-3.6); CREATINE KINASE 165 UL (21-215); HDL CHOLESTEROL 60 mg/dL (32-96); LDL CHOLESTEROL 167 mg/dL (0-100); LDL-HDL RATIO 2.8 ratio (1.5-3.5); TRIGLYCERIDE 117 mg/dL (30-200)
[2017-02-27 21:39] LABS: TROPONIN-I < 0.017 ng/mL (0.000-0.060)
[2017-02-27 23:20] LABS: CREATINE KINASE 163 UL (21-215)
[2017-02-27 23:22] LABS: TROPONIN-I < 0.017 ng/mL (0.000-0.060)
--- NOTE | 2017-02-27 23:34 | NUR ---
PT ARRIVED FROM THE ER VIA WHEELCHAIR, ALERT AND ORIENTED TO ROOM AND CALL LIGHT. RESPIRATIONS EVEN AND UNLABORED. CALL LIGHT IN REACH, WILL CONTINUE TO MONITOR.
[2017-02-27] MEDS ORDERED: COZAAR50 MG PO (23:37)
[2017-02-27] MEDS ORDERED: HCTZ25 MG PO (23:37)
[2017-02-27] MEDS ORDERED: DICYCLOMINE (23:38)
[2017-02-28 01:16] VITALS: BP 183/85
[2017-02-28 05:39] VITALS: BP 120/66
[2017-02-28 05:44] LABS: CREATINE KINASE 204 UL (21-215)
[2017-02-28 05:57] LABS: TROPONIN-I < 0.017 ng/mL (0.000-0.060)
[2017-02-28 07:49] VITALS: BP 111/47
--- NOTE | 2017-02-28 09:49 | NUR ---
NPO AFTER BRK. CONSENTS SIGNED FOR [facility]. WILL CONT. PLAN OF CARE.
[2017-02-28 10:47] LABS: BASOPHILS 0.1 % (0-2); EOSINOPHILS 0 % (0-7); HEMATOCRIT 43.9 % (36.0-48.0); IMMATURE GRANULOCYTES 0.3 % (0-5); LYMPHOCYTES 17.2 % (15-50); MCH 33.2 pg (26.0-34.0); MCHC 34.2 g/dL (31.0-37.0); MCV 97.1 fL (80.0-100.0); NEUTROPHILS 74.4 % (40-80); PLATELET COUNT 263 10x3/uL (130-400); RBC 4.52 10x6/uL (4.00-5.40); RDW 13.1 % (11.5-14.5); WBC 14.8 10x3/uL (4.8-10.8)
[2017-02-28 11:47] LABS: CALC OSMOLALITY 285 mosm/kg (275-300); CALCIUM 9.6 mg/dL (8.5-10.1); CARBON DIOXIDE 24.3 mmol/L (21.0-32.0); CHLORIDE - SERUM 103 mmol/L (98-107); CKMB 1.1 U/L (0.0-3.6); CREATINE KINASE 182 UL (21-215); CREATININE - SERUM 1.2 mg/dL (0.6-1.3); GLUCOSE 117 mg/dL (74-106); POTASSIUM - SERUM 3.9 mmol/L (3.5-5.1); SODIUM 138 mmol/L (136-145); TROPONIN-I < 0.017 ng/mL (0.000-0.060); UREA NITROGEN 37 mg/dL (7-18); eGFR NON AFRICAN AMERICAN 47 mL/min (90-120)
[2017-02-28 11:52] VITALS: Ht 162.6 cm; Wt 87.5 kg
[2017-02-28 12:05] VITALS: BP 115/46
--- NOTE | 2017-02-28 13:26 | CN ---
PATIENT NAME:RIZWAN DO MEDICAL RECORD: [id number] : 46 LOCATION:. D.2117 ADMIT DATE: 02/27/17 ACCOUNT: [id number] CONSULTING PHYSICIAN: STANISLAW SIDDIQUI MD REFERRING PHYSICIAN: STANISLAW SIDDIQUI MD DATE OF CONSULTATION: 02/28/2017 HISTORY OF PRESENT ILLNESS: A 66-year-old lady well known to us with a history of coronary artery disease, status post intervention. She has a history of hypertension, doing well until the last prior 2-3 days ago, has been having exertional angina, had a rest symptomatology yesterday, relieved with 3 nitroglycerins. She was admitted for further evaluation. PAST MEDICAL HISTORY: Includes; 1. History of hypertension. 2. Dyslipidemia. MEDICATIONS: Includes; 1. Protonix 40 daily. 2. Hydrochlorothiazide 25 daily. 3. Meloxicam 7.5 daily. 4. Aspirin 81 daily. 5. Losartan 50 daily. 6. Combivent inhaler 1 puff q.i.d. SOCIAL HISTORY: Lives here in [place]. She is a nonsmoker. She is able to take care of her ADLs. ALLERGIES: INCLUDE KEFLEX, TALWIN, FENTANYL PATCH, TRAMADOL, AND ADHESIVE TAPE. REVIEW OF SYSTEMS: The patient reports easy bruising but reports no swollen glands. The patient reports no fever, no night sweats, no significant weight gain, no significant weight loss. No significant exercise tolerance. The patient reports no dry eyes, no irritation, no vision change. Patient reports no difficulty hearing and no ear pain. Patient reports no frequent nose bleeds or nose and sinus problems. Patient reports on arm pain on exertion. No shortness of breath while lying down. No history of heart murmur. Patient reports no cough, no wheezing or coughing up blood. Patient reports no abdominal pain, no vomiting. Normal appetite. No diarrhea and not vomiting blood. No nausea and no constipation. Patient reports no incontinence. No difficulty urinating. No hematuria. No increased frequency. Patient reports no muscle aches. No weakness, no arthralgias, no back pain. No swelling of the extremities. Patient reports no abnormal mole, no jaundice, no rashes. Reports no loss of consciousness. No weakness and no numbness. No seizures, dizziness, or headaches. The patient reports no depression, no sleep disturbance, feeling safe in a relationship and no alcohol abuse. Patient reports on fatigue. Reports no runny nose or sinus pressure. No itching, no hives, and no frequent sneezing. PHYSICAL EXAMINATION: GENERAL: Pleasant female, appears stated age. VITAL SIGNS: Blood pressure 111/47, pulse 52. HEENT: Normocephalic, atraumatic. NECK: No JVD or bruit. HEART: Regular. CONSULT REPORT [id number] RIZWAN DO LUNGS: Hahn clear. ABDOMEN: Soft, nontender. EXTREMITIES: Pulses 2+ with no edema. NEUROLOGIC: Grossly intact. IMPRESSION: Accelerated angina. PLAN: Diagnostic angiography, intervention based on above. TRANSINT:[id number] Voice Confirmation ID: [id number] DOCUMENT ID: [id number] STANISLAW SIDDIQUI MD at 1326 CC: [id number] DICTATION DATE: 02/28/17 0856 TECHNICAL SUPPORT INTERN: 02/28/17 1051 ADM IN [place] [id number] [place] [address]
--- NOTE | 2017-02-28 14:35 | NUR ---
PRE-OPS GIVEN. 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
[2017-02-28 15:45] VITALS: BP 165/78
[2017-02-28] MEDS ORDERED: PLAVIX75 MG PO (18:03)
--- NOTE | 2017-02-28 19:42 | NUR ---
RESUMED CARE OF PT, LYING IN BED RESPIRATIONS EVEN AND UNLABORED ON ROOM AIR. RIGHT GROIN DRESSING, C/D/I. PEDAL PULSES PALPABLE. 69 SR WITH PVC ON TELEMETRY. CALL LIGHT IN REACH. WILL CONTINUE TO MONTIOR.
--- NOTE | 2017-02-28 20:14 | NUR ---
IV REMOVED TIP INTACT, TELEMETRY OFF. PAPERWORK SIGNED, SCRIPT FOR PLAVIX IN HAND. ESCORTED OUT TO CAR VIA WHEELCHAIR.
--- NOTE | 2017-03-06 13:31 | OP ---
PATIENT NAME: RIZWAN DO MEDICAL RECORD: [id number] :46 LOCATION:D.M2 D.2117 ADMISSION DATE:02/27/17 SURGEON: STANISLAW SIDDIQUI MD DATE OF OPERATION: 02/28/2017 PROCEDURE: Left heart catheterization, selective coronary angiography, right femoral approach. CATHETERS: A 5-Greenlandic sheath, 5/4 left and right Asmita, 5/4 pig. The procedure was well tolerated. The patient returned to the lee, sheath removed. ExoSeal device placed. FINDINGS: Left ventriculography 30-degree MAC view. Normal wall motion, normal systolic function. CORONARY ANATOMY: LEFT MAIN: Left main is free of disease. LAD: Proximal to the previously placed stent shows an 80% stenosis. The diagonal itself has about 80% stenosis. CIRCUMFLEX: Free of disease. Area of previous stenting is widely patent. RIGHT CORONARY ARTERY: Free of disease. IMPRESSION: Plan intervention of the LAD momentarily. DESCRIPTION OF PROCEDURE: A 5-Greenlandic sheath was changed for a 6-Greenlandic sheath. An XB LAD guided catheter provided good guide catheter support followed by a 300 cm Whisper wire was placed across the tightly occluded LAD down this portion of this vessel. A stent then deployed was a 3-0 50 mm Cromwell drug-eluting stent up to 14 atmospheres. Next, there was further snot plowing of the diagonal and a Whisper guidewire was then placed across the 2 diagonal down this portion of vessel using the indwelling balloon within it and performed inflation up to 4 atmospheres for 30 seconds. Final injection shows excellent resolution of 80% stenosis, LAD. No significant residual. ANTHONY flow was 3 throughout the procedure. Excellent resolution of the snow plowing of the diagonal itself itself. TRANSINT:[id number] Voice Confirmation ID: [id number] DOCUMENT ID: [id number] STANISLAW ISDDIQUI MD at 1331 CC: [id number] DICTATION DATE: 02/28/17 1528 CHIEF OF PARTY: 02/28/172103 DIS IN 02/28/[address] [facility] [address] [place] [id number]
== END 2017-02-28 20:15 | disposition home or self-care (01) ==
LOC: D.ER 19:48 → D.M2 22:57 → OBSVTIME 22:57 → D.M2 02-28 20:15
PROVIDERS: Emergency Medicine; ADMIT Internal Medicine Interventional Cardiology
DX: I25.110 Atherosclerotic heart disease of native coronary artery with unstable angina pectoris (principal); I10 Essential (primary) hypertension; Z95.5 Presence of coronary angioplasty implant and graft; E78.5 Hyperlipidemia, unspecified
CPT/HCPCS: 93458; 92921; C9600

== ENCOUNTER 2017-07-19 17:09 | Observation (INO) | payer MEDICARE, BC ==
[~2017-07-19] VITALS: Ht 162.6 cm; Wt 96.1 kg
[~2017-07-19 17:09] MED LIST changes: +COZAAR50 MG PO; +DICYCLOMINE; +HCTZ25 MG PO
[2017-07-19 17:46] LABS: BASOPHILS 0.2 % (0-2); EOSINOPHILS 0.4 % (0-7); HEMATOCRIT 45.5 % (36.0-48.0); HEMOGLOBIN 15.8 g/dL (12-16); IMMATURE GRANULOCYTES 0.3 % (0-5); LYMPHOCYTES 18.3 % (15-50); MCH 33.6 pg (26.0-34.0); MCHC 34.7 g/dL (31.0-37.0); MCV 96.8 fL (80.0-100.0); MEAN PLATELET VOLUME 10.9 fL (7.4-10.4); MONOCYTES 6.6 % (2-11); NEUTROPHILS 74.2 % (40-80); PLATELET COUNT 259 10x3/uL (130-400); RDW 12.9 % (11.5-14.5)
[2017-07-19 18:12] LABS: ALBUMIN 3.3 g/dL (3.4-5.0); ALKALINE PHOSPHATASE 72 U/L (46-116); ALT (SGPT) 27 U/L (10-68); BILIRUBIN - TOTAL 0.23 mg/dL (0.2-1.3); CALC OSMOLALITY 281 mosm/kg (275-300); CALCIUM 10.2 mg/dL (8.5-10.1); CARBON DIOXIDE 24.5 mmol/L (21.0-32.0); CHLORIDE - SERUM 102 mmol/L (98-107); CREATININE - SERUM 1.2 mg/dL (0.6-1.3); GLUCOSE 146 mg/dL (74-106); POTASSIUM - SERUM 3.5 mmol/L (3.5-5.1); PROTEIN - SERUM 7.3 g/dL (6.4-8.2); SODIUM 138 mmol/L (136-145); UREA NITROGEN 20 mg/dL (7-18); eGFR NON AFRICAN AMERICAN 47 mL/min (90-120)
[2017-07-19 18:28] LABS: CHOL - HDL RATIO 5.2 ratio (2.3-4.1); CHOLESTEROL, TOTAL 249 mg/dL (0-200); CKMB 0.3 U/L (0.0-3.6); CREATINE KINASE 69 UL (21-215); HDL CHOLESTEROL 48 mg/dL (32-96); LDL CHOLESTEROL 140 mg/dL (0-100); LDL-HDL RATIO 2.9 ratio (1.5-3.5); MAGNESIUM - SERUM 1.6 mg/dL (1.8-2.4); PRO BNP 76 pg/mL (0-125); TRIGLYCERIDE 305 mg/dL (30-200)
[2017-07-19 18:32] LABS: TROPONIN-I < 0.017 ng/mL (0.000-0.060)
[2017-07-19] MEDS ORDERED: BENTYL10 MG PO (21:37)
[2017-07-19 21:44] VITALS: BMI 36.1
[2017-07-20 01:19] LABS: CKMB 0.4 U/L (0.0-3.6); CREATINE KINASE 63 UL (21-215)
[2017-07-20 01:26] VITALS: BP 117/83
[2017-07-20 01:29] LABS: TROPONIN-I < 0.017 ng/mL (0.000-0.060)
[2017-07-20 05:37] VITALS: BP 104/68
[2017-07-20 06:46] LABS: CKMB 0.8 U/L (0.0-3.6); CREATINE KINASE 69 UL (21-215); TROPONIN-I < 0.017 ng/mL (0.000-0.060)
[2017-07-20 08:30] LABS: BASOPHILS 0.5 % (0-2); EOSINOPHILS 2.3 % (0-7); HEMATOCRIT 41.4 % (36.0-48.0); HEMOGLOBIN 13.9 g/dL (12-16); IMMATURE GRANULOCYTES 0.3 % (0-5); LYMPHOCYTES 32.8 % (15-50); MCH 32.9 pg (26.0-34.0); MCHC 33.6 g/dL (31.0-37.0); MCV 97.9 fL (80.0-100.0); MEAN PLATELET VOLUME 11.3 fL (7.4-10.4); MONOCYTES 9.6 % (2-11); NEUTROPHILS 54.5 % (40-80); PLATELET COUNT 241 10x3/uL (130-400); RBC 4.23 10x6/uL (4.00-5.40); RDW 13.2 % (11.5-14.5); WBC 9.9 10x3/uL (4.8-10.8)
[2017-07-20 08:36] LABS: CALCIUM 9.3 mg/dL (8.5-10.1); CARBON DIOXIDE 24.6 mmol/L (21.0-32.0); CREATININE - SERUM 1.1 mg/dL (0.6-1.3); POTASSIUM - SERUM 3.6 mmol/L (3.5-5.1)
[2017-07-20 08:43] VITALS: BP 111/73
[2017-07-20 08:53] VITALS: Ht 162.6 cm; Wt 96.1 kg
[2017-07-20] MEDS ORDERED: NITROSTAT0.3 MG SL (08:58)
== END 2017-07-20 11:12 | disposition home or self-care (01) ==
LOC: D.ER 17:09 → D.M2 17:40 → OBSVTIME 17:40 → D.M2 07-20 11:12
PROVIDERS: Emergency Medicine; Internal Medicine Cardiovascular Disease
DX: I25.110 Atherosclerotic heart disease of native coronary artery with unstable angina pectoris (principal); Z95.5 Presence of coronary angioplasty implant and graft; F17.203 Nicotine dependence unspecified, with withdrawal; I10 Essential (primary) hypertension; J44.9 Chronic obstructive pulmonary disease, unspecified; F41.9 Anxiety disorder, unspecified; F32.9 Major depressive disorder, single episode, unspecified; E78.5 Hyperlipidemia, unspecified; I73.9 Peripheral vascular disease, unspecified; K21.9 Gastro-esophageal reflux disease without esophagitis

== ENCOUNTER 2017-07-22 07:26 | Outpatient (CLI) | payer MEDICARE, BC ==
[~2017-07-22] VITALS: Ht 162.6 cm; Wt 95.9 kg
--- NOTE | ~2017-07-22 | OP ---
PATIENT NAME: RIZWAN DO MEDICAL RECORD: [id number] :46 LOCATION:D.CAT ADMISSION DATE: SURGEON: CORINE HAY MD DATE OF OPERATION: 07/22/2017 PROCEDURES: 1. Laser atherectomy LAD. 2. PTCA stent LAD. 3. Selective coronary angiography. PROCEDURE IN DEATIL: After informed consent was obtained and after a detailed description of risks, benefits as well as alternative therapies, the patient elected to proceed with angiogram and angioplasty. The right femoral area had a preexisting sheath from cardiac catheterization. All catheters exchanged through this sheath. FINDINGS: The left anterior descending has a 95% stenosis in the mid vessel. This was addressed with a 0.9 laser catheter, multiple passes were made. Stenting was undertaken with a 2.5 x 22 mm Fredy. Result was 0% residual stenosis. OVERALL IMPRESSION: Successful percutaneous transluminal coronary angioplasty stent of the left anterior descending going from 95% initial stenosis to 0% residual stenosis. TRANSINT:[id number] Voice Confirmation ID: [id number] DOCUMENT ID: [id number] CORINE HAY MD at 1849 CC: [id number] DICTATION DATE: 07/22/17 1144 VERTICAL CONTOUR BAND SAW OPERATOR: 07/22/17 1236 DEP CLI 07/22/17 [facility] [address] [place] [address]
--- NOTE | ~2017-07-22 | HEMODYNAMI ---
PATIENT:RIZWAN DO MEDICAL RECORD: [id number] : 46 LOCATION:[facility] ADMISSION DATE: 07/22/17 Generatedon:07/23/20178:08 Patient name: RIZWAN DO Patient #: [id number] SSN: DO B: 1950 Date of study: 07/22/2017 Page: Of Hemodynamic Procedure Report Patient Data Patient Demographics Procedure consent was obtained First Name: RIZWAN Gender: Female Last Name: ERNESTINA : 1950 Middle Initial: J Age: 67 year(s) Patient #: [id number] Race: Additional ID: [id number] Contact details Address: [address] [place] [address] rd State: [place] City: [place] Zip code: [address] Past Medical History Allergies Allergen Reaction Date Comments Reported Other allergy 02/28/2017 Pentazocine Lactate, Cephalexin, Adhesive Other allergy 07/22/2017 TALWIN, KEFLEX, ADHESIVE, TRAMADOL, ADHESIVE OF FENTANYL PATCH Admission Admission Data Admission Date: 07/22/2017 Admission Time: 7:26 Lab Results Lab Result Date: 07/22/2017 Lab Result Time: 0:00 Biochemistry Name Units Result Min Max BUN mg/dl 15 --(--*-)-- 7 18 Creatinine mg/dl 1 --(--*-)-- 0.6 1.3 CBC Name Units Result Min Max Hemoglobin g/dl 15.7 --(--*-)-- 13.5 17.5 Procedure Procedure Types Cath Procedure Diagnostic Procedure LHC LHC w/Coronaries Sedation Charges Moderate Sedation up to 30 minutes PCI Procedure Coronary Atherectomy Atherectomy w/Stent Coronary Initial Procedure Description Procedure Date Procedure Date: 07/22/2017 Procedure Start Time: 11:01 Procedure End Time: 11:45 Procedure Staff Name Function Redd Jauregui MD Performing Physician Eulalio Hutchins RT Monitor Benny Medrano RN Nurse Molly Hahn RT Scrub Manoj Ramsay MD Assisting physician Procedure Data Cath Procedure Fluoroscopy Diagnostic fluoroscopy Total fluoroscopy Time: 7.4 time: 7.4 min min Diagnostic fluoroscopy Total fluoroscopy dose: dose: 1047 mGy 1047 mGy Contrast Material Contrast Material Type Amount (ml) Isovue 370 111 Entry Location Entry Primary Successful Side Size Upsize Upsize Entry Closure Succes sful Closure Location (Fr) 1 (Fr) 2 (Fr) Remarks Device Remarks Femoral Right 5 Fr 6 Fr Exoseal artery Short Estimated blood loss: 10 ml Diagnostic catheters Device Type Used For End Catheter Placement MULTIPACK JL 4.0 5Fr Procedure catheter MULTIPACK 3DRC 5Fr Procedure catheter MULTIPACK Pigtail 5 Fr Procedure catheter Procedure Complications No complications Procedure Medications Medication Administration Route Dosage 0.9% NaCl I.V. 100 ml/hr Oxygen etCO2 Nasal cannula 2 l/min Heparin Flush Bag added to field 2 bags (1000units/500ml NS) Lidocaine 2% added to field 20 Versed I.V. 2 mg Fentanyl I.V. 100 mcg Versed I.V. 1 mg Versed I.V. 1 mg Heparin Bolus I.V. 4000 units Fentanyl I.V. 50 mcg Fentanyl I.V. 50 mcg Plavix P.O. 75 mg Fentanyl I.V. 100 mcg Hemodynamics Rest HGB: 15.7 (g/dl) Heart Rate: 75 (bpm) Pressure Samples Time Site Value (mmHg) Purpose Heart Use Rate(bpm) 11:15 LV 141/3,17 Snapshot 75 11:16 LV 136/2,17 Pullback 76 11:16 AO 136/75(101) Pullback 76 Gradients Valve Time Site 1 Site 2 Mean SEP/DFP Peak To Heart Use (mmHg) (sec/min) Peak Rate (mmHg) (bpm) Aortic 11:16 LV AO 17 7 0 76 136/2,17 136/75(101) Calculations Valve P-P Mean Valve Index Valve Source Name Gradient Area Flow (cm2) Aortic 0 17 0 17 Snapshots Pre Cath Intra NCS Post Cath Vital Signs Time Heart Resp SPO2 etCO2 NIBP (mmHg) Rhythm Pain Sedation Rate (ipm) (%) (mmHg) Status Level (bpm) 10:52:33 77 14 97 24.7 106/65(99) NSR 0 (11) 10(A) , No pain 10:57:10 72 14 90 31.5 106/57(74) NSR 0 (11) 10(A) , No pain 11:01:48 72 15 93 31.5 115/62(80) NSR 0 (11) 10(A) , No pain 11:06:27 73 14 93 30.7 113/63(89) NSR 0 (11) 9(A) , No pain 11:11:07 73 14 94 36.7 117/59(92) NSR 0 (11) 9(A) , No pain 11:15:46 75 16 95 32.2 113/63(91) NSR 0 (11) 9(A) , No pain 11:20:24 76 14 94 33 119/64(93) NSR 0 (11) 10(A) , No pain 11:25:05 73 18 94 32.2 118/65(94) NSR 0 (11) 9(A) , No pain 11:29:46 72 15 96 32.2 108/57(81) NSR 0 (11) 9(A) , No pain 11:34:22 75 15 96 32.2 115/72(86) NSR 0 (11) 9(A) , No pain 11:39:34 81 23 95 19.5 136/77(101) NSR 0 (11) 9(A) , No pain 11:44:16 73 17 95 32.2 123/68(91) NSR 0 (11) 9(A) , No pain Medications Time Medication Route Dose Verified Delivered Reason Notes Effectiveness by by 10:41:43 0.9% NaCl I.V. 100 Benny Benny Per physician ml/hr Mitchell Medrano RN RN 10:41:55 Oxygen etCO2 2 Benny Benny Per physician Nasal l/min Mitchell Medrano cannula RN RN 10:51:21 Heparin Flush added 2 Benny Benny used for Bag to bags Mitchell Medrano procedure (1000units/500ml field LOPES RN NS) 10:51:32 Lidocaine 2% added 20ml Benny Benny for local to vial Mitchell Medrano anesthetic field LOPES RN 10:59:14 Versed I.V. 2 mg Benny Benny for sedation Mitchell Medrano RN RN 10:59:23 Fentanyl I.V. 100 Benny Benny for sedation mcg Mitchell Medrano RN RN 11:01:09 Versed I.V. 1 mg Benny Benny for sedation Mitchell Medrano RN RN 11:22:09 Versed I.V. 1 mg Benny Benny for sedation Mitchell Medrano RN RN 11:33:28 Heparin Bolus I.V. 4000 Benny Benny for units Lormaximino Medrano anticoagulation RN RN 11:33:39 Fentanyl I.V. 50 Benny Benny for sedation mcg Mitchell Medrano RN RN 11:39:54 Fentanyl I.V. 50 Benny Benny for sedation mcg Mitchell Lormaximino RN RN 11:41:48 Plavix P.O. 75 mg Benny Benny for Lorigan Mitchell antiplatelet RN RN therapy 11:48:41 Fentanyl I.V. 100 for sedation mcg Procedure Log Time Note 10:34:40 Time tracking: Regular hours (M-F 7:00 - 5:00) 10:35:01 Eulalio Hutchins RT(R) sent for patient. Start room use. 10:35:05 Plan of Care:Hemodynamics will remain stable., Cardiac rhythm will remain stable., Comfort level will be maintained., Respiratory function will remain adequate., Patient/ family verbilizes understanding of procedure., Procedure tolerated without complication., Recovers from procedure without complications.. 10:35:06 Signed procedure consent form obtained from patient. 10:35:23 H&P Date Dictated: 07/19/2017 Within 30 days and on chart., H&P Addendum completed by physician on day of procedure. (MUST COMPLETE FOR ALL OUTPATIENTS). 10:36:55 Lab Result : Hemoglobin 15.7 g/dl 10:36:55 Lab Result : Creatinine 1 mg/dl 10:36:55 Lab Result : BUN 15 mg/dl 10:37:26 Patient allergic to Other allergyTALWIN, KEFLEX, ADHESIVE, TRAMADOL, ADHESIVE OF FENTANYL PATCH 10:41:43 0.9% NaCl 100 ml/hr I.V. was administered by Benny Medrano RN; Per physician; 10:41:55 Oxygen 2 l/min etCO2 Nasal cannula was administered by Benny Medrano RN; Per physician; 10:42:08 Patient received from Pre/Post Procedure Room to CCL 1 Alert and oriented. Tansferred to table in Supine position. 10:42:09 Correct patient and procedure confirmed by team. 10:42:09 Warm blankets applied, and chucky hugger turned on for patient comfort. 10:42:10 ECG and BP/O2 sat monitors applied to patient. 10:51:21 Heparin Flush Bag (1000units/500ml NS) 2 bags added to field was administered by Benny Medrano RN; used for procedure; 10:51:32 Lidocaine 2% 20ml vial added to field was administered by Benny Medrano RN; for local anesthetic; 10:51:37 Vital chart was started 10:56:15 Baseline sample Acquired. 10:56:20 Rhythm: sinus rhythm 10:56:21 Full Disclosure recording started 10:56:23 Pre-procedure instructions explained to patient. 10:56:24 Pre-op teaching completed and patient verbalized understanding. 10:56:26 Family in waiting room. 10:56:27 Patient NPO since Midnight. 10:56:29 Is the patient allergic to Iodine/contrast media? No. 10:56:30 Is patient on blood thinner?Yes 10:56:34 ACC The patient was administered the following blood thiners within the last 24 hours: ACCPlavix 10:56:36 Patient diabetic? No. 10:56:38 Previous problem with sedation/anesthesia? No ? 10:56:40 Snore? No 10:56:46 Sleep apnea? No 10:56:47 Deviated septum? No 10:56:48 Opens mouth fully? Yes 10:56:49 Sticks out tongue? Yes 10:56:53 Airway obstruction? Yes COPD 10:56:57 Dentures? Yes IN TIGHT 10:56:59 Pre procedure: right dorsailis pedis pulse 2+ Normal; easily identifiable; not easily obliterated 10:57:01 Patient pain scale 0/10 ?. 10:57:07 IV patent on arrival in left antecubital with 0.9% NaCl at [facility] 10:57:44 Lab results completed and on chart. 10:57:52 Right groin area was prepped with chlora-prep and draped in sterile fashion 10:57:53 Alarms reviewed by R. N. 10:57:54 Sharps counted by scrub and verified by R.N. 10:57:56 Use device set Femoral Dx 10:58:14 ACIST Syringe (47958) opened to sterile field. 10:58:15 Bag Decanter (2002S) opened to sterile field. 10:58:18 ACIST Hand Control (69616) opened to sterile field. 10:58:19 ACIST Manifold (63991) opened to sterile field. 10:58:26 DIAGNOSTIC WIRE .035 260cm J wire (852983) opened to sterile field. 10:58:26 Medline Cath Pack ([id number]) opened to sterile field. 10:58:28 Tegaderm 4 x 4 (1626W) opened to sterile field. 10:58:28 DIAGNOSTIC Multipack 5Fr catheter set (HJ4374) opened to sterile field. 10:58:30 SHEATH Prelude 5Fr 0.035 (ZZZ-4O-69-035) opened to sterile field. 10:58:39 Physician arrived 10:58:40 Final Timeout: patient, procedure, and site verified with staff and physician. All members of the team are in agreement. 10:58:40 --------ALL STOP TIME OUT------ 10:58:42 Right groin site verified by team. 10:58:48 Physical assessment completed. ASA score P 2 - A patient with mild systemic disease as per Redd Jauregui MD. 10:58:51 Sedation plan: IV Moderate Sedation Medication:Versed, Fentanyl 10:59:14 Versed 2 mg I.V. was administered by Benny Medrano RN; for sedation; 10:59:23 Fentanyl 100 mcg I.V. was administered by Benny Medrano RN; for sedation; 11:01:09 Versed 1 mg I.V. was administered by Benny Medrano RN; for sedation; 11:01:17 Procedure started. 11:01:20 Local anesthetic to right femoral artery with Lidocaine 2% by Redd Jauregui MD.INITIAL ACCESS ONLY 11:01:44 Zero performed for pressure channel P1 11:10:23 A 5 Fr sheath was inserted into the Right Femoral artery 11:11:17 A MULTIPACK JL 4.0 5Fr catheter was advanced over the wire and used for Procedure. 11:11:42 LCA angiography performed. 11:13:07 Catheter exchanged over wire. 11:13:32 A MULTIPACK 3DRC 5Fr catheter was advanced over the wire and used for Procedure. 11:14:06 RCA angiography performed. 11:14:26 Catheter exchanged over wire. 11:14:32 A MULTIPACK Pigtail 5 Fr catheter was advanced over the wire and used for Procedure. 11:15:45 LV gram done using MAC 11:15:46 LV hemodynamics recorded. 11:15:49 Injector settings: Ml/sec: 10, Volume: 20, 11:15:56 EF : 50 % 11:22:09 Versed 1 mg I.V. was administered by Benny Medrano RN; for sedation; 11:27:10 Catheter removed. 11:27:29 SHEATH Prelude 6Fr 0.035 (QPW-4U-01-035) opened to sterile field. 11:27:30 CHOICE PT Extra Support 182cm wire ([id number]) opened to sterile field. 11:27:31 INFLATOR Merit BasixCompak (LZ5016) opened to sterile field. 11:27:38 GUIDE 6FR XBLAD 3.5 catheter ([id number]) opened to sterile field. 11:29:11 Sheath upsized to a 6 Fr Short. 11:29:19 6 Fr XBLAD 3.5 guide catheter was inserted over the wire 11:32:31 CHOICE PT wire advanced. 11:33:28 Heparin Bolus 4000 units I.V. was administered by Benny Medrano RN; for anticoagulation; 11:33:39 Fentanyl 50 mcg I.V. was administered by Benny Medrano RN; for sedation; 11:33:42 Dr. Ramsay entered procedure to perform Laser Atherectomy. 11:34:30 choice pt wire advanced. 11:34:32 Wire advanced across lesion. 11:36:03 Laser pass to mLAD with Fluence of 40 and Rate of 40. 11:36:34 Laser pass to mLAD with Fluence of 40 and Rate of 40. 11:37:01 Laser pass to mLAD with Fluence of 40 and Rate of 40. 11:37:32 Pass Number: 1 A LASER ELCA 0.9 Rx atherectomy catheter ([id number]) was advanced to the Mid LAD. Laser Begun. Frequency: 0 Power: 0 11:37:42 Laser removed. 11:39:07 Place stent Inflation Number: 1 A ROLDAN RX 2.5 x 22 stent ([id number]) was prepped and advanced across the Mid LAD. The stent was deployed at 13 EFRAÍN for 0:10 (min:sec). 11:39:54 Fentanyl 50 mcg I.V. was administered by Benny Lorigan RN; for sedation; 11:40:03 Stent catheter was removed intact over wire. 11:40:04 Guide catheter removed. 11:40:04 Wire removed. 11:40:10 EXOSEAL 6Fr (EX600) opened to sterile field. 11:40:25 Sheath removed intact; hemostasis achieved with Exoseal to the Right Femoral artery. 11:40:34 Procedure ended.(Physican Out) 11:41:48 Plavix 75 mg P.O. was administered by Benny Medrano RN; for antiplatelet therapy; 11:41:57 Fluoroscopy time 07.40 minutes. 11:42:00 Fluoroscopy dose: 1047 mGy 11:42:00 Flurop Dose total: 1047 11:42:04 Contrast amount:Isovue 370 111ml. 11:42:53 Laser total pulses delivered: 1200 11:43:03 Laser total treatment time: 0 minutes 30 seconds 11:43:15 Insertion/operative site no bleeding no hematoma. 11:43:18 Post-op/insertion site Right Femoral artery dressed using a 4 x 4 and Tegaderm. 11:43:22 Post right femoral artery:stable, soft, clean and dry 11:43:23 Post Procedure Pulses reassessed and unchanged 11:43:28 Post-procedure physical assessment completed. ASA score P 2 - A patient with mild systemic disease as per Redd Jauregui MD. 11:43:30 Post procedure rhythm: unchanged. 11:43:32 Estimated blood loss: 10 ml 11:43:34 Patient needs reinforcement of post procedure teaching. 11:43:34 Post procedure instruction explained to patient.Patient verbalizes understanding. 11:43:54 Procedure type changed to Cath procedure, Diagnostic procedure, LHC, LHC w/Coronaries, Sedation Charges, Moderate Sedation up to 30 minutes, PCI procedure, Coronary Atherectomy, Atherectomy w/Stent Coronary Initial 11:45:23 Procedure and supply charges have been captured, reviewed, submitted and are correct. 11:45:25 Procedure Complication : No complications 11:45:28 Vital chart was stopped 11:45:29 See physician's report for complete and final results. 11:45:36 Report given to Pre/Post Procedure Room. 11:45:39 Patient transfered to Pre/Post Procedure Room with Stretcher. 11:45:40 Full Disclosure recording stopped 11:45:40 Procedure ended. 11:45:46 End room use (Document Last) 11:48:41 Fentanyl 100 mcg I.V. was administered by ; for sedation; Intervention Summary Intervention Notes Time ActionType Lesion and Equipment Used Action# Pressure Duration Attributes 11:37:32 Laser pass Mid LAD LASER ELCA 0.9 Rx atherectomy catheter ([id number]) 11:39:07 Place stent Mid LAD ROLDAN RX 2.5 x 1 13 00:10 22 stent ([id number]) Device Usage Item Name Manufacture Quantity Catalog Number Hospital Part Current Minimal Lot# / Charge Number Stock Stock Serial# Code ACIST Syringe Acist 1 01871 951587 283778 980116 20 (26274) Medical Systems YaKlass Bag Decanter Microtek 1 2001S 408442 64317 511123 5 (2001S) Medical Inc. ACIST Hand Acist 1 50201 392711 760654 990897 5 Control (80641) Medical Systems YaKlass ACIST Manifold Acist 1 28611 362175 084375 715038 5 (89028) NBO TV Systems YaKlass Medline Cath Cardinal 1 [id number] 845186 76876 533988 5 Pack Health ([id number]) DIAGNOSTIC WIRE [facility] 1 860966 512760 818576 002751 30 .035 260cm J wire (829584) DIAGNOSTIC Cardinal 1 EN0478 651692 71376 115163 30 Multipack 5Fr Health catheter set (ET2595) Tegaderm 4 x 4 3M 1 1626W 186922 509164 963851 5 (1626W) SHEATH Prelude Merit 1 OWD-8O-45-035 102232 719163 943567 5 5Fr 0.035 Medical (SCO-1D-30-035) MULTIPACK JL Cardinal 1 435137 5 4.0 5Fr Health catheter MULTIPACK 3DRC Cardinal 1 494817 5 5Fr catheter Health MULTIPACK Cardinal 1 189419 5 Pigtail 5 Fr Health catheter SHEATH Prelude Merit 1 MZA-8Q-88-35 921933 2667515 463113 5 6Fr 0.035 Medical (SRN-1T-47-035) CHOICE PT Extra [place] 1 [id number] 984996 694947 289141 5 Support 182cm Scientific wire ([id number]) INFLATOR Merit Merit 1 RD5809 561448 246903 525634 15 [employer] (UL9727) GUIDE 6FR XBLAD Cardinal 1 [id number] 475308 955683 711358 10 3.5 catheter Health ([id number]) LASER ELCA 0.9 Barron 1 110004 147628 981148 440900 5 Rx atherectomy [facility] catheter (017321) (266960) ROLDAN RX 2.5 x Medtronic 1 [id number] 856443 7782079 756210 5 [id number] 22 stent ([id number]) EXOSEAL 6Fr Cardinal 1 EX600 584732 338380 003903 10 (EX600) Health Signature Audit [place] Stage Time Signature Unsigned Intra-Procedure 07/22/2017 Eulalio Hutchins RT(R) 11:50:27 AM RT(R) 07/23/2017 8:07:56 AM Intra-Procedure 07/23/2017 Eulalio Hutchins 8:08:39 AM RT(R) Signatures Monitor : Eulalio Hutchins RT Signature : Date : Time : [place] [id number] [place] [address]
[~2017-07-22 07:26] MED LIST changes: +BENTYL10 MG PO; +NITROSTAT0.3 MG SL
[2017-07-22 08:26] VITALS: BP 124/90; Ht 162.6 cm; Wt 95.9 kg
[2017-07-22 08:30] LABS: BASOPHILS 0.4 % (0-2); EOSINOPHILS 1.8 % (0-7); HEMATOCRIT 45.3 % (36.0-48.0); HEMOGLOBIN 15.7 g/dL (12-16); IMMATURE GRANULOCYTES 0.1 % (0-5); LYMPHOCYTES 25.2 % (15-50); MCH 33.5 pg (26.0-34.0); MCHC 34.7 g/dL (31.0-37.0); MCV 96.8 fL (80.0-100.0); MEAN PLATELET VOLUME 10.8 fL (7.4-10.4); MONOCYTES 8.1 % (2-11); NEUTROPHILS 64.4 % (40-80); PLATELET COUNT 243 10x3/uL (130-400); RBC 4.68 10x6/uL (4.00-5.40); RDW 12.9 % (11.5-14.5); WBC 8.3 10x3/uL (4.8-10.8)
[2017-07-22 08:40] LABS: ANION GAP 14.3 mmol/L (8-16); CALCIUM 9.2 mg/dL (8.5-10.1); CARBON DIOXIDE 28.1 mmol/L (21.0-32.0); POTASSIUM - SERUM 3.4 mmol/L (3.5-5.1)
== END 2017-07-22 16:00 | disposition home or self-care (01) ==
LOC: D.CATH 07:26
PROVIDERS: Internal Medicine Cardiovascular Disease
DX: I25.119 Atherosclerotic heart disease of native coronary artery with unspecified angina pectoris (principal); T82.855A Stenosis of coronary artery stent, initial encounter; Z01.812 Encounter for preprocedural laboratory examination
CPT/HCPCS: 93458; C9602

== ENCOUNTER 2017-08-21 11:26 | Emergency (ER) | payer MEDICARE, BC ==
[~2017-08-21] VITALS: Ht 162.6 cm; Wt 92.7 kg
[2017-08-21 11:29] VITALS: Ht 162.6 cm; Wt 92.7 kg
[2017-08-21] MEDS ORDERED: BENTYL10 MG (11:31)
[2017-08-21 12:54] LABS: BASOPHILS 0.4 % (0-2); HEMATOCRIT 45.1 % (36.0-48.0); HEMOGLOBIN 15.6 g/dL (12-16); IMMATURE GRANULOCYTES 0.2 % (0-5); LYMPHOCYTES 25.8 % (15-50); MCH 33.3 pg (26.0-34.0); MCHC 34.6 g/dL (31.0-37.0); MCV 96.2 fL (80.0-100.0); MONOCYTES 6.1 % (2-11); NEUTROPHILS 66.5 % (40-80); PLATELET COUNT 242 10x3/uL (130-400); RBC 4.69 10x6/uL (4.00-5.40); RDW 12.7 % (11.5-14.5)
[2017-08-21 13:14] LABS: ALBUMIN 3.5 g/dL (3.4-5.0); ALKALINE PHOSPHATASE 84 U/L (46-116); ALT (SGPT) 21 U/L (10-68); CALC OSMOLALITY 277 mosm/kg (275-300); CALCIUM 9.8 mg/dL (8.5-10.1); CARBON DIOXIDE 26.8 mmol/L (21.0-32.0); CHLORIDE - SERUM 102 mmol/L (98-107); CREATININE - SERUM 0.8 mg/dL (0.6-1.3); GLUCOSE 110 mg/dL (74-106); POTASSIUM - SERUM 3.7 mmol/L (3.5-5.1); PROTEIN - SERUM 6.9 g/dL (6.4-8.2); SODIUM 139 mmol/L (136-145); UREA NITROGEN 9 mg/dL (7-18); eGFR NON AFRICAN AMERICAN 75 mL/min (90-120)
[2017-08-21 13:25] LABS: CKMB 0.8 U/L (0.0-3.6); CREATINE KINASE 60 UL (21-215); THYROID STIMULATING HORMONE 0.85 uIU/mL (0.36-3.74); TROPONIN-I < 0.017 ng/mL (0.000-0.060)
[2017-08-21 14:40] LABS: UDS - AMPHET NEGATIVE QUAL (NEGATIVE); UDS - BARB NEGATIVE QUAL (NEGATIVE); UDS - BENZO NEGATIVE QUAL (NEGATIVE); UDS - COCAINE NEGATIVE QUAL (NEGATIVE); UDS - OPIATE POSITIVE QUAL (NEGATIVE); UDS - PCP NEGATIVE QUAL (NEGATIVE); UDS - THC NEGATIVE QUAL (NEGATIVE)
[2017-08-21 14:57] LABS: APPEARANCE CLEAR (CLEAR); BILIRUBIN NEGATIVE (NEGATIVE); COLOR YELLOW (YELLOW); GLUCOSE NEGATIVE (NEGATIVE); KETONE NEGATIVE (NEGATIVE); NITRITE NEGATIVE (NEGATIVE); PROTEIN NEGATIVE (NEGATIVE); SPECIFIC GRAVITY 1.005 (1.005-1.020); UROBILINOGEN NORMAL (NORMAL)
[2017-08-21 14:59] LABS: BACTERIA MANY /hpf (NONE SEEN); MUCUS <1+ /lpf (NONE SEEN); RED CELLS - URINE 0-5 /hpf (0-5)
[2017-08-21] MEDS ORDERED: MACROBID100 MG PO (16:27)
[2017-08-21 17:02] VITALS: BP 158/88
== END 2017-08-21 17:02 | disposition home or self-care (01) ==
LOC: D.ER 11:26
PROVIDERS: Family Medicine
DX: R00.2 Palpitations (principal); N39.0 Urinary tract infection, site not specified; I10 Essential (primary) hypertension; K21.9 Gastro-esophageal reflux disease without esophagitis; Z86.79 Personal history of other diseases of the circulatory system; F17.200 Nicotine dependence, unspecified, uncomplicated; Z99.81 Dependence on supplemental oxygen

== ENCOUNTER 2017-08-23 20:29 | Emergency (ER) | payer MEDICARE, BC ==
[~2017-08-23] VITALS: Ht 162.6 cm; Wt 90.9 kg
[~2017-08-23 20:29] MED LIST changes: +BENTYL10 MG; +MACROBID100 MG PO
[2017-08-23 20:40] VITALS: Ht 162.6 cm; Wt 90.9 kg
[2017-08-23] MEDS ORDERED: MACRODANTIN100 MG (20:41)
[2017-08-23 21:20] LABS: BASOPHILS 0.4 % (0-2); EOSINOPHILS 1.1 % (0-7); HEMATOCRIT 42.2 % (36.0-48.0); HEMOGLOBIN 14.7 g/dL (12-16); IMMATURE GRANULOCYTES 0.2 % (0-5); MCH 33.5 pg (26.0-34.0); MCHC 34.8 g/dL (31.0-37.0); MCV 96.1 fL (80.0-100.0); MEAN PLATELET VOLUME 10.8 fL (7.4-10.4); MONOCYTES 6.9 % (2-11); NEUTROPHILS 71.4 % (40-80); PLATELET COUNT 220 10x3/uL (130-400); RBC 4.39 10x6/uL (4.00-5.40); RDW 12.7 % (11.5-14.5)
[2017-08-23 21:44] LABS: ALBUMIN 3.4 g/dL (3.4-5.0); ALKALINE PHOSPHATASE 79 U/L (46-116); ALT (SGPT) 22 U/L (10-68); AMYLASE - SERUM 47 U/L (25-115); BILIRUBIN - TOTAL 0.25 mg/dL (0.2-1.3); CALC OSMOLALITY 278 mosm/kg (275-300); CALCIUM 8.7 mg/dL (8.5-10.1); CARBON DIOXIDE 22.9 mmol/L (21.0-32.0); CHLORIDE - SERUM 103 mmol/L (98-107); CREATINE KINASE 147 UL (21-215); CREATININE - SERUM 0.9 mg/dL (0.6-1.3); GLUCOSE 137 mg/dL (74-106); POTASSIUM - SERUM 3.1 mmol/L (3.5-5.1); PROTEIN - SERUM 7.1 g/dL (6.4-8.2); SODIUM 139 mmol/L (136-145); UREA NITROGEN 10 mg/dL (7-18); eGFR NON AFRICAN AMERICAN 66 mL/min (90-120)
[2017-08-23 21:45] LABS: TROPONIN-I < 0.017 ng/mL (0.000-0.060)
[2017-08-23] MEDS ORDERED: CIPRO500 MG PO (22:35)
[2017-08-24 04:24] VITALS: BP 144/78
== END 2017-08-24 04:35 | disposition home or self-care (01) ==
LOC: D.ER 20:29
PROVIDERS: Family Medicine
DX: T37.8X5A Adverse effect of other specified systemic anti-infectives and antiparasitics, initial encounter (principal); Y92.019 Unspecified place in single-family (private) house as the place of occurrence of the external cause; F41.9 Anxiety disorder, unspecified; R11.2 Nausea with vomiting, unspecified; J44.9 Chronic obstructive pulmonary disease, unspecified; F17.200 Nicotine dependence, unspecified, uncomplicated

== ENCOUNTER → 2018-07-11 13:25 | Outpatient (CLI) | payer MEDICARE, BC ==
[2017-08-23 20:40] VITALS: BMI 34.4
[~2018-07-11 13:25] MED LIST changes: +CIPRO500 MG PO; +MACRODANTIN100 MG
== END | disposition home or self-care (01) ==
LOC: D.HCCARDIO 13:25
PROVIDERS: ATTEND Internal Medicine Cardiovascular Disease
DX: I07.1 Rheumatic tricuspid insufficiency (principal)

== ENCOUNTER → 2018-08-14 14:26 | Outpatient (CLI) | payer MEDICARE, BC ==
[2017-08-23 20:40] VITALS: BMI 34.4
== END | disposition home or self-care (01) ==
LOC: D.LAB 14:26
PROVIDERS: ATTEND Internal Medicine Gastroenterology
DX: K58.0 Irritable bowel syndrome with diarrhea (principal); K21.9 Gastro-esophageal reflux disease without esophagitis

== ENCOUNTER 2020-09-08 05:42 | Outpatient (CLI) | payer OTHER ==
[~2020-09-08] VITALS: Ht 162.6 cm; Wt 91.8 kg
[2020-09-08] MEDS ORDERED: TENORMIN25 MG PO (08:34)
[2020-09-08] MEDS ORDERED: PEPCID40 MG PO (08:34)
[2020-09-08] MEDS ORDERED: NORVASC2.5 MG PO (08:35)
[2020-09-08 08:36] LABS: MCH 33.1 pg (26.0-34.0); MCHC 33.4 g/dL (31.0-37.0); MEAN PLATELET VOLUME 9.5 fL (7.4-10.4); RBC 4.55 10x6/uL (4.00-5.40); RDW 13.4 % (11.5-14.5); WBC 8.9 10x3/uL (4.8-10.8)
[2020-09-08 08:47] VITALS: BP 121/64; Ht 162.6 cm; Wt 91.8 kg
[2020-09-08 08:52] LABS: APTT 33.6 SECONDS (22.8-39.4); INR 1.18 (0.85-1.17); PROTIME 13.9 SECONDS (11.6-15.0)
--- NOTE | 2020-09-08 10:54 | NUR ---
IV DC'D WITH TIP INTACT. DISCHARGE INSTRUCTIONS PROVIDED AND WHEELED OUT TO CAR.
--- NOTE | 2020-09-13 13:46 | OP ---
PATIENT NAME: RIZWAN DO MEDICAL RECORD: [id number] :46 LOCATION:D.[facility] ADMISSION DATE: SURGEON: PHIL GARCIA MD DATE OF OPERATION: 09/08/2020 PREOPERATIVE DIAGNOSES: 1. Gastroesophageal reflux disease. 2. Hiatal hernia. POSTOPERATIVE DIAGNOSES: 1. Gastroesophageal reflux disease. 2. Hiatal hernia. PROCEDURE: EGD with manometry catheter placement and biopsy. SURGEON: Phil Garcia MD DESCRIPTION OF PROCEDURE: An Olympus endoscope was advanced through the mouth and esophagus. We easily passed through the stomach and into the first portion of the duodenum. There was a little inflammatory changes present. As we pulled the scope back, there were no masses, lesions or ulcerations in the stomach. The incisura of the stomach had a very acute angle and we did a retroflexed view, we could see that there was a small hiatal hernia present. The hiatal hernia measured out about 2 cm in length. The GE junction was noted to be about 33 cm from the teeth. We then performed a biopsy of the distal esophagus. There were no signs of any inflammatory changes or ulcerations visible. We then removed the scope and a manometry catheter was inserted through the patient's right naris. We then reinserted the scope and could see that the manometry catheter was progressing through the GE junction into the stomach. COMPLICATIONS: None. CONDITION: Stable. ANESTHESIA: TIVA. BLOOD LOSS: Minimal. TRANSINT:[id number] Voice Confirmation ID: [id number] DOCUMENT ID: [id number] PHIL GRACIA MD at 1346 CC: GREGORIO ELENA MD [id number] DICTATION DATE: 09/08/20 0934 PANEL ASSEMBLER: 09/08/20 0950 DEP CLI 09/08/20 [place] [address]
== END 2020-09-08 10:45 ==
LOC: D.OPS 05:42
PROVIDERS: Anesthesiology; ATTEND Surgery
DX: K21.9 Gastro-esophageal reflux disease without esophagitis (principal); K44.9 Diaphragmatic hernia without obstruction or gangrene; I25.10 Atherosclerotic heart disease of native coronary artery without angina pectoris; I10 Essential (primary) hypertension; F17.200 Nicotine dependence, unspecified, uncomplicated